=== PATIENT | female | born 1955 | race Caucasian/White ===

== ENCOUNTER → 2018-02-02 | Outpatient (CLI) | payer BC | LOC: COL.RAD 07:49 | DX: M25.511 Pain in right shoulder (principal); J01.00 Acute maxillary sinusitis, unspecified | CPT/HCPCS: J3301; Q9967 ==

== ENCOUNTER → 2018-04-02 | Outpatient (CLI) | payer BC | LOC: MC.RAD 10:08 | DX: Z12.31 Encounter for screening mammogram for malignant neoplasm of breast (principal) ==

== ENCOUNTER → 2019-05-17 | Outpatient (CLI) | payer BC | LOC: MC.RAD 08:18 | DX: Z12.31 Encounter for screening mammogram for malignant neoplasm of breast (principal) ==

== ENCOUNTER 2022-07-07 09:33 | Inpatient (IN) | payer BC ==
[~2022-07-07] VITALS: Ht 157.5 cm; Wt 83.5 kg
[2022-07-07 10:30] VITALS: BP 121/70; PULSE 96; TEMP 99.1
--- NOTE | 2022-07-07 10:58 | NUR ---
Patient arrived to the unit, alert and oriented x 4, VSS. Imflamation in the middle finger of the left arm, and upper arm. Redness and warm. Pain 5/10. Assessment intake completed.
[2022-07-07] MEDS ORDERED: SINGULAIR 110 MG/TAB PO (11:04)
[2022-07-07] MEDS ORDERED: DOXYCYCLINE 10100 MG PO (11:05)
[2022-07-07] MEDS ORDERED: ZYRTEC 10MG10 MG PO (11:20)
[2022-07-07 11:27] LABS: BASO % 0.5 % (0.0-2.0); EOS # 0.1 K/mm3 (0.0-0.7); EOS % 1.6 % (0.0-4.0); GRAN % 80.1 % (42.2-75.2); HEMATOCRIT 38.3 % (37.0-47.0); HEMOGLOBIN 12.4 g/dl (12.5-16.0); LYMPH # 0.8 K/mm3 (1.2-3.4); LYMPH % 9.5 % (20.0-51.0); MEAN CELL VOLUME 80 fl (80.0-100.0); MEAN CORPUSCULAR HEMOGLOBIN 26 pg (27-31); MEAN CORPUSCULAR HGB CONC 32 g/dl (33.0-37.0); MEAN PLATELET VOLUME 10.6 fl (7.4-10.4); MONO # 0.7 K/mm3 (0.1-0.6); PLATELET COUNT 215 K/mm3 (130-400); RED BLOOD COUNT 4.82 M/mm3 (4.10-5.30); REDCELL DISTRIBUTION WIDTH-CV 15.8 % (11.5-14.5)
[2022-07-07 11:36] LABS: ALBUMIN 3.5 gm/dL (3.4-4.8); BILIRUBIN,TOTAL 1.3 mg/dL (0.2-1.2); C-REACTIVE PROTEIN 17.07 mg/dL (0.00-0.50); CREATININE, serum 0.7 mg/dL (0.57-1.11); POTASSIUM 3.7 mmol/L (3.5-4.5); TOTAL PROTEIN 6.8 gm/dL (6.2-8.1)
[2022-07-07 12:00] VITALS: BP 132/65; PULSE 88; TEMP 99.7
--- NOTE | 2022-07-07 12:21 | NUR ---
Carla: Mandaeism Situation: Roll Forming Machine Set Up Operator stopped by room on rounds Background: Pt was resting and content Assessment: Pt has no needs right now Recommendation: Roll Forming Machine Set Up Operator will follow up as needed
[2022-07-07 16:23] VITALS: BP 158/74; PULSE 91; TEMP 100.7
--- NOTE | 2022-07-07 19:27 | NUR ---
Patient is getting antibiotics per orders. Continues with cough while eating something. Report given to night RN.
[2022-07-07 20:43] VITALS: BP 162/56; PULSE 89; TEMP 98.5
[2022-07-08] VITALS (10 sets, daily range): BP systolic 128–169; BP diastolic 52–94; PULSE 67–83; TEMP 97.8–100
--- NOTE | 2022-07-08 07:40 | NUR ---
Assessment complete. A&Ox4. Denies nausea/shortness of breath. Rating pain 4/10 to left hand-denies need for intervention. Left middle finger noted to have ulceration at tip. Redness/warmth/edema up to elbow with streaking underneath. Patient states streaking was noticed yesterday down side/armpit-none noted today. PICC to right upper arm with good blood return-flushes well. D%NS@75ml/hr infusing without difficulty. Constent form signed for EGD. Plan of care discussed for this shift to include antibiotics/pain control/EGD/calling for questions/concerns. Verbalizes understanding. Call light in reach. Will monitor.
[2022-07-08 09:25] LABS: MEAN CELL VOLUME 79 fl (80.0-100.0); MEAN CORPUSCULAR HEMOGLOBIN 26 pg (27-31); MEAN CORPUSCULAR HGB CONC 32 g/dl (33.0-37.0); MEAN PLATELET VOLUME 10.4 fl (7.4-10.4); PLATELET COUNT 209 K/mm3 (130-400); RED BLOOD COUNT 4.32 M/mm3 (4.10-5.30); REDCELL DISTRIBUTION WIDTH-CV 16.1 % (11.5-14.5)
[2022-07-08 09:26] LABS: HEMATOCRIT 34.2 % (37.0-47.0)
[2022-07-08 09:39] LABS: C-REACTIVE PROTEIN 16.89 mg/dL (0.00-0.50); CALCIUM 8.6 mg/dL (8.4-10.2); CREATININE, serum 0.79 mg/dL (0.57-1.11); POTASSIUM 3.6 mmol/L (3.5-4.5)
--- NOTE | 2022-07-08 11:15 | NUR ---
Arrived to room 358 from Endoscopy. Post endo vitals initiated and WNL. IV fluids infusing without difficulty. Has more coughing than before EGD. Will address when gag reflex returns. Denies current needs. Call light in reach. Will monitor.
--- NOTE | 2022-07-08 12:08 | NUR ---
ANNETTA Bland notified of need for pain medication. Patient rating pain 6/10 to left hand/arm-described as constant throbbing. Staes tylenol would be strong enough. Meds given per dr ospina.
--- NOTE | 2022-07-08 13:00 | NUR ---
Patient states tylenol helped with pain. Denies current needs. Call light in reach. Will monitor.
--- NOTE | 2022-07-08 15:20 | NUR ---
Medicare Nurse met with patient to discuss discharge planning. Patient's , Dr. Rodriguez Zhang at bedside, however leaves during intake. Patient lives in [place] with her and sees Dr. Chica Leyva for primary care. Patient obtains medications from [facility] with no difficulties and does not use any DME. Patient is independent with ADLS and plans to return home at time of discharge. Patient advised her is her DPOA-HC. Discharge Plan: Home
--- NOTE | 2022-07-08 15:32 | NUR ---
[facility]
--- NOTE | 2022-07-08 15:39 | NUR ---
Dr Duncan called for update on patient. Information given. Will call back to speak directly to patient as she is off the floor for a procedure.
[2022-07-09 00:38] VITALS: BP 145/56; PULSE 71; TEMP 97.7
[2022-07-09 04:55] VITALS: BP 135/66; PULSE 94; TEMP 97.4
[2022-07-09 06:31] LABS: BASO % 0.6 % (0.0-2.0); EOS # 0.5 K/mm3 (0.0-0.7); EOS % 6.4 % (0.0-4.0); GRAN # 4.7 K/mm3 (1.4-6.5); GRAN % 67.3 % (42.2-75.2); LYMPH # 1.1 K/mm3 (1.2-3.4); LYMPH % 15.2 % (20.0-51.0); MEAN CELL VOLUME 83 fl (80.0-100.0); MEAN CORPUSCULAR HGB CONC 31 g/dl (33.0-37.0); MEAN PLATELET VOLUME 11.1 fl (7.4-10.4); MONO # 0.7 K/mm3 (0.1-0.6); MONO % 10.4 % (1.7-9.3); PLATELET COUNT 177 K/mm3 (130-400); RED BLOOD COUNT 3.76 M/mm3 (4.10-5.30)
[2022-07-09 06:44] LABS: HEMATOCRIT 31.1 % (37.0-47.0); HEMOGLOBIN 9.6 g/dl (12.5-16.0); MEAN CORPUSCULAR HEMOGLOBIN 26 pg (27-31)
[2022-07-09 07:18] LABS: CALCIUM 7.7 mg/dL (8.4-10.2); CREATININE, serum 0.91 mg/dL (0.57-1.11); POTASSIUM 3.2 mmol/L (3.5-4.5)
--- NOTE | 2022-07-09 10:14 | NUR ---
VSS, PT A&O X4, PT ABLE TO MAKE NEEDS KNOWN, PT RESTING IN BED, DENIES PAIN, FALL PRECUAUTIONS IN PLACE, CALL LIGHT IN REACH
[2022-07-09 11:16] VITALS: BP 162/85; PULSE 61; TEMP 98.2
[2022-07-09 15:16] VITALS: BP 157/76; PULSE 61; TEMP 97.9
--- NOTE | 2022-07-09 18:48 | NUR ---
KARINA FROM [facility] TO GIVE 3 BAGS KCL TOTALING 30MEQ, PT IS UNABLE TO TOLERATE PO TABLETS
--- NOTE | 2022-07-09 20:30 | NUR ---
PT RESTING IN BED. TOOK A COUPLE BITES OF SHERBERT AND VOMITTED. NAUSEA RELIEVED. SEE MAR FOR EX TYLENOL GIVEN. TOOK WITH BITE OF BANANA. PT REPORTS NO BM FOR 5 DAYS. PT WILLING TO TRY MIRALX AND SENOKOT. CALL LIGHT IN REACH.
[2022-07-09 20:50] VITALS: BP 163/69; PULSE 70; TEMP 98.2
--- NOTE | 2022-07-09 21:17 | NUR ---
STOOL SPECIMEN SENT TO LAB FOR OB.
[2022-07-10 00:01] VITALS: BP 167/85; PULSE 63; TEMP 98.2
--- NOTE | 2022-07-10 00:02 | NUR ---
PT C/O CABALLERO LEVEL 06/25 AND NAUSEA. BP 167/85. NOTIFIED KRISHAN GALVEZ. SEE NEW ORDER.
--- NOTE | 2022-07-10 00:26 | NUR ---
SEE MAR FOR ZOFRAN AND TRAMADOL GIVEN.
--- NOTE | 2022-07-10 02:32 | NUR ---
PT RELATES H/A IS BETTER BUT NOT RESOLVED. NAUSEA IS RESOLVED.
[2022-07-10 04:54] VITALS: BP 155/67; PULSE 63; TEMP 97.8
--- NOTE | 2022-07-10 05:54 | NUR ---
DR PIERCE CALLED.NEW ORDER FOR REGAILYN.
--- NOTE | 2022-07-10 06:30 | NUR ---
PT UP TO BR. VOMITED A LARGE AMT OF CLEAR FLUID. STILL HAS CABALLERO. SEE MAR FOR ZOFRAN AND TRAMADOL GIVEN.
[2022-07-10 07:52] LABS: BASO % 0.4 % (0.0-2.0); EOS # 0.3 K/mm3 (0.0-0.7); EOS % 3.7 % (0.0-4.0); GRAN # 4.9 K/mm3 (1.4-6.5); GRAN % 72.6 % (42.2-75.2); HEMATOCRIT 32.8 % (37.0-47.0); HEMOGLOBIN 10.3 g/dl (12.5-16.0); LYMPH # 0.9 K/mm3 (1.2-3.4); LYMPH % 13.6 % (20.0-51.0); MEAN CELL VOLUME 81 fl (80.0-100.0); MEAN CORPUSCULAR HEMOGLOBIN 25 pg (27-31); MEAN CORPUSCULAR HGB CONC 31 g/dl (33.0-37.0); MEAN PLATELET VOLUME 10.8 fl (7.4-10.4); MONO # 0.6 K/mm3 (0.1-0.6); MONO % 9.3 % (1.7-9.3); PLATELET COUNT 214 K/mm3 (130-400); RED BLOOD COUNT 4.05 M/mm3 (4.10-5.30); REDCELL DISTRIBUTION WIDTH-CV 15.9 % (11.5-14.5)
--- NOTE | 2022-07-10 07:53 | NUR ---
VSS, PT A&O X4, PT ABLE TO MAKE NEEDS KNOWN, REPORTS CABALLERO PAIN AND NAUSEA, PT RESTING IN BED, FALL PRECAUTIONS IN PLACE, CALL LIGHT IN REACH
[2022-07-10 07:58] LABS: C-REACTIVE PROTEIN 6.88 mg/dL (0.00-0.50); CALCIUM 8.7 mg/dL (8.4-10.2); CREATININE, serum 0.8 mg/dL (0.57-1.11); POTASSIUM 3.7 mmol/L (3.5-4.5)
[2022-07-10 08:00] VITALS: BP 148/62; PULSE 63; TEMP 98.4
--- NOTE | 2022-07-10 09:52 | NUR ---
VORB PER DR. JAMISON, DO NOT REPLACE POTASSIUM TODAY
[2022-07-10 16:09] VITALS: BP 143/74; PULSE 66; TEMP 98
[2022-07-10] MEDS ORDERED: DOXYCYCLINE 10100 MG PO (16:26)
[2022-07-10] MEDS ORDERED: REGLAN 5MG T5 MG/TAB PO (16:27)
[2022-07-10] MEDS ORDERED: PROTONIX 40MG T40 MG PO (16:28)
[2022-07-10] MEDS ORDERED: CEPHALEXIN500 M1 PO (16:29)
[2022-07-10] MEDS ORDERED: ZOFRAN 4MG T4 MG/TAB PO (16:29)
--- NOTE | 2022-07-10 18:16 | NUR ---
PICC LINE REMOVED BY THIS RN AT THIS TIME. DOM VERDUGO HOLDING PRESSURE AT THIS TIME.
--- NOTE | 2022-07-10 18:37 | NUR ---
PICC DC'D PER PROTOCOL PER SHARRI RN, PT EDUCATED ON DISMISSAL INSTRUCTIONS/MEDICATION INSTRUCTIONS/FOLLOW UP INSTRUCTIONS, PT AND PT'S VOICED NO QUESTIONS/CONCERNS AT TIME OF DISMISSAL, PT AMBULATES TO EXIT, NO FURTHER CONCERNS
== END 2022-07-10 19:00 | disposition home or self-care (01) | DRG 603 ==
LOC: MEDICAL 09:33
PROVIDERS: Nurse Practitioner; Physician Assistant; ADMIT Internal Medicine
PROC: 02HV33Z Insertion of Infusion Device into Superior Vena Cava, Percutaneous Approach (ICD-10-PCS; principal; 2022-07-07)
PROC: 0DB68ZX Excision of Stomach, Via Natural or Artificial Opening Endoscopic, Diagnostic (ICD-10-PCS; 2022-07-08)
PROC: 0DB68ZX Excision of Stomach, Via Natural or Artificial Opening Endoscopic, Diagnostic (ICD-10-PCS; 2022-07-08)
DX: L03.012 Cellulitis of left finger (principal); L03.114 Cellulitis of left upper limb; K21.9 Gastro-esophageal reflux disease without esophagitis; R13.10 Dysphagia, unspecified; S67.193A Crushing injury of left middle finger, initial encounter; S67.22XA Crushing injury of left hand, initial encounter; E80.6 Other disorders of bilirubin metabolism; K29.30 Chronic superficial gastritis without bleeding; D64.9 Anemia, unspecified; J45.909 Unspecified asthma, uncomplicated; M19.90 Unspecified osteoarthritis, unspecified site; E80.4 Gilbert syndrome; E87.6 Hypokalemia; K31.7 Polyp of stomach and duodenum; K59.00 Constipation, unspecified; G44.209 Tension-type headache, unspecified, not intractable; R05.3 Chronic cough; Z91.013 Allergy to seafood; Y92.89 Other specified places as the place of occurrence of the external cause; Y93.89 Activity, other specified; Z87.19 Personal history of other diseases of the digestive system; Z72.89 Other problems related to lifestyle
CPT/HCPCS: OP; A9541; A9575; C1751; C9113; G0378; G0379; J2405; J2543; J2704; J2765; J3370; J3480; J7030; J7042; J7050